=== PATIENT | female | born 1980 | race Caucasian/White ===

== ENCOUNTER → 2017-10-26 | Day surgery (SDC) | payer OTHER | END | disposition home or self-care (01) | LOC: ADM 10-23 09:45 → CIR.AMB 06:26 | DX: O03.4 Incomplete spontaneous abortion without complication (principal) ==

== ENCOUNTER → 2020-06-04 | Outpatient (CLI) | payer OTHER | END | disposition home or self-care (01) | LOC: SONOGRAMA 10:03 | PROVIDERS: ATTEND Pathology Anatomic Pathology & Clinical Pathology | DX: E04.1 Nontoxic single thyroid nodule (principal) ==

== ENCOUNTER 2022-07-10 17:17 | Outpatient (CLI) | payer OTHER | END 2022-07-10 17:35 | disposition home or self-care (01) | LOC: NST 17:17 | PROVIDERS: ATTEND Obstetrics & Gynecology | DX: Z34.83 Encounter for supervision of other normal pregnancy, third trimester (principal) ==

== ENCOUNTER 2022-07-15 17:07 | Outpatient (CLI) | payer OTHER | END 2022-07-15 17:58 | disposition home or self-care (01) | LOC: NST 17:07 | PROVIDERS: ATTEND Obstetrics & Gynecology | DX: Z34.83 Encounter for supervision of other normal pregnancy, third trimester (principal) ==

== ENCOUNTER 2022-07-24 13:30 | Inpatient (IN) | payer OTHER ==
[~2022-07-24] VITALS: Ht 152.4 cm; Wt 74.8 kg
[2022-08-02] MEDS ORDERED: PRENATAL TABLE1 EAC1 (15:51)
== END 2022-08-04 16:24 | disposition home or self-care (01) | DRG 807 ==
LOC: LDR 08-02 09:12 → OB/GYN 08-02 09:12 → LDR 08-02 19:12 → OB/GYN 08-02 22:53
PROVIDERS: ADMIT Obstetrics & Gynecology Gynecology; ATTEND Obstetrics & Gynecology Gynecology
PROC: 10E0XZZ Delivery of Products of Conception, External Approach (ICD-10-PCS; principal; 2022-08-02)
PROC: 0KQM0ZZ Repair Perineum Muscle, Open Approach (ICD-10-PCS; 2022-08-02)
PROC: 4A1HXCZ Monitoring of Products of Conception, Cardiac Rate, External Approach (ICD-10-PCS; 2022-08-02)
DX: O70.1 Second degree perineal laceration during delivery (principal); Z37.0 Single live birth; O14.15 Severe pre-eclampsia, complicating the puerperium; Z3A.39 39 weeks gestation of pregnancy; Z20.822 Contact with and (suspected) exposure to COVID-19

== ENCOUNTER 2022-07-29 15:08 | Outpatient (CLI) | payer OTHER | END 2022-07-29 16:32 | disposition home or self-care (01) | LOC: NST 15:08 | PROVIDERS: ATTEND Obstetrics & Gynecology Maternal & Fetal Medicine | DX: Z34.83 Encounter for supervision of other normal pregnancy, third trimester (principal) ==